=== PATIENT | female | born 1995 | race Caucasian/White ===

== ENCOUNTER 2022-02-23 03:09 | Emergency (ER) | payer BC ==
[~2022-02-23] VITALS: Ht 177.8 cm; Wt 99.8 kg
[2022-02-23 03:12] VITALS: BP_SYST 121
--- NOTE | 2022-02-23 03:16 | NUR ---
PT HERE C/O LOWER ABD PAIN ON AND OFF X1 WK, PT DENIES N/V/D, DENIES DYSURIA. DENIES OTHER SYMPTOM. PER PT SHE HAD VAGINAL DELIVERY 3 MOS AGO. PMH;DENIES PT AAOX4, NO SOB NOTED AND NAD. PENDING MD FLOWERS
--- NOTE | 2022-02-23 03:30 | NUR ---
Dr. Wang at bedside with patient for evaluation.
--- NOTE | 2022-02-23 03:45 | NUR ---
Pt from home with c/o of lower abd pain and pain to the buttocks area. Denies N/V and diarrhea. Pt states LBM was sunday. VSS. Safety precautions in place and connected to monitor.
[2022-02-23] MEDS ORDERED: BISACODYL 10 MG/SUPPOSITORY RC ONE (04:00)
[2022-02-23] MEDS ORDERED: MAGNESIUM CITRATE 300 ML ORAL SOLUTION PO ONE (04:00)
[2022-02-23 04:04] LABS: BILIRUBIN,URINE 2+ (NEGATIVE); BLOOD, URINE 3+ (NEGATIVE); CLARITY/URINE TURBID (CLEAR); COLOR,URINE YELLOW (YELLOW); GLUCOSE,URINE NEGATIVE (NEGATIVE); KETONES,URINE NEGATIVE (NEGATIVE); LEUKOCYTE ESTERASE ,URINE NEGATIVE (NEGATIVE); NITRITE, URINE NEGATIVE (NEGATIVE); PH,URINE 5.5 (5.0-8.0); PROTEIN URINE 1+ (NEGATIVE); UROBILINOGEN,URINE 0.2 (0.2-1.0)
[2022-02-23 04:05] LABS: BASOPHILS % (AUTO) 0.5 % (0.0-2.0); EOSINOPHILS # (AUTO) 0.1 K/uL (0.0-0.4); EOSINOPHILS % (AUTO) 2.6 % (0.0-4.0); HEMATOCRIT 31.8 % (36-48); HEMOGLOBIN 10.1 g/dL (12.0-16.0); LYMPHOCYTES # (AUTO) 1.5 K/uL (1.0-5.5); LYMPHOCYTES % (AUTO) 27.8 % (20.5-51.5); MEAN CORPUSCULAR HEMOGLOBIN 25 pg (27-31); MEAN CORPUSCULAR HGB CONC 32 % (32-36); MEAN CORPUSCULAR VOLUME 77 fL (79.0-98.0); MONOCYTES # (AUTO) 0.4 K/uL (0.0-1.0); MONOCYTES % (AUTO) 7.8 % (1.7-9.3); NEUTROPHILS # (AUTO) 3.2 K/uL (1.8-7.7); NEUTROPHILS % (AUTO) 61.3 % (40.0-70.0); PLATELET COUNT (AUTO) 327 K/uL (130-430); RED BLOOD CELL COUNT(AUTO) 4.14 MIL/uL (4.2-6.2); RED CELL DISTRIBUTION WIDTH 18.9 % (9.0-15.0); WHITE BLOOD COUNT (AUTO) 5.2 K/uL (4.8-10.8)
[2022-02-23 04:14] LABS: BACTERIA,URINE FEW /HPF (None Seen); RBC,URINE >100 /HPF (0-3); WBC,URINE 0-3 /HPF (0-3)
[2022-02-23 04:15] LABS: MUCUS,URINE None Seen /LPF (None Seen)
[2022-02-23] MEDS ORDERED: MAGNESIUM CITRATE 300 ML ORAL SOLUTION ONE (04:22)
[2022-02-23 04:26] LABS: CALCIUM 9.1 mg/dL (8.4-11.0); CREATININE 0.75 mg/dL (0.55-1.30)
[2022-02-23 04:32] LABS: ALBUMIN 3.5 g/dL (3.4-4.8); TOTAL BILIRUBIN 0.1 mg/dL (0.0-1.0)
--- NOTE | 2022-02-23 05:14 | NUR ---
PT AMBULATED TO RESTROOM WITH STEADY GAIT. REPORTS HAVING BOWEL MOVEMENT THAT IS NORMAL FOR HER. REPORTS FEELING LESS BLOATED. BACK IN BED WITH SAFETY PRECAUTIONS IN PLACE.
[2022-02-23] MEDS ORDERED: HYDR25SU33 RC (05:58)
[2022-02-23] MEDS ORDERED: HYDROCORTISONE ACETATE 1 SUPP (ANUSOL HC) RC ONE (06:00)
[2022-02-23 06:25] VITALS: BP_SYST 97
--- NOTE | 2022-02-23 06:25 | NUR ---
Patient given written and verbal discharge instructions and verbalizes understanding. ER Dr. Wang discussed with patient the results and treatment provided. Patient in stable condition. ID arm band removed. Rx of [id number]-hc given. Patient educated on pain management and to follow up with PMD. Pain Scale 0. Opportunity for questions provided and answered. Medication side effect fact sheet provided.
== END 2022-02-23 06:25 | disposition home or self-care (01) ==
LOC: SED 03:09
DX: K59.00 Constipation, unspecified (principal); R10.30 Lower abdominal pain, unspecified; M54.50 Low back pain, unspecified; Z88.6 Allergy status to analgesic agent; Z79.899 Other long term (current) drug therapy
CPT/HCPCS: 36415; 74018; 80053; 81000; 81025; 83690; 85025; 99284